=== PATIENT | male | born 1940 | race Caucasian/White ===

== ENCOUNTER 2019-12-01 10:51 | Outpatient (REF) | payer OTHER, SELFPAY ==
[2019-12-01 13:10] LABS: Calculated LDL 71 mg/dL (<100); Cholesterol 147 mg/dL (<200); HDL Cholesterol 53 mg/dL (40-60); Triglyceride 119 mg/dL (<150)
== END 2019-12-01 11:11 ==
LOC: LBN 10:51
PROVIDERS: PCP Emergency Medicine; Visit Provider Emergency Medicine
DX: E78.5 Hyperlipidemia, unspecified (principal)
CPT/HCPCS: 80061